=== PATIENT | female | born 1960 | race African-American/Black ===

== ENCOUNTER 2017-10-20 09:18 | Emergency (ER) | payer OTHER ==
[~2017-10-20] VITALS: Ht 167.6 cm; Wt 84.0 kg
[2017-10-20] MEDS ORDERED: ACETAMINOPHEN 500MG TABLET PO ONE (10:30)
[2017-10-20 13:10] VITALS: BP 142/86
== END 2017-10-20 13:10 | disposition home or self-care (01) ==
LOC: ER 09:18
DX: S80.12XA Contusion of left lower leg, initial encounter (principal); F17.200 Nicotine dependence, unspecified, uncomplicated; X58.XXXA Exposure to other specified factors, initial encounter; Y93.89 Activity, other specified; Y92.89 Other specified places as the place of occurrence of the external cause; Y99.8 Other external cause status
CPT/HCPCS: 93005; 93971; 99284